=== PATIENT | female | born 1985 | race Caucasian/White ===

== ENCOUNTER 2018-09-28 15:19 | Emergency (ER) | payer OTHER ==
[~2018-09-28] VITALS: Ht 157.5 cm; Wt 61.7 kg
[2018-09-28 15:27] VITALS: Ht 157.5 cm; Wt 61.7 kg
[2018-09-28 16:04] VITALS: BP 114/89
== END 2018-09-28 16:04 | disposition home or self-care (01) ==
LOC: ED 15:19
DX: T81.30XA Disruption of wound, unspecified, initial encounter (principal); Z98.890 Other specified postprocedural states; Z86.2 Personal history of diseases of the blood and blood-forming organs and certain disorders involving the immune mechanism